=== PATIENT | female | born 2005 | race Caucasian/White ===

== ENCOUNTER 2023-01-22 22:15 | Emergency (ER) | payer MEDICAID ==
[~2023-01-22] VITALS: Ht 170.2 cm; Wt 63.6 kg
[2023-01-22 22:43] VITALS: BP 123/82; PULSE 96; RESP 17; TEMP 99; O2SAT 99
== END 2023-01-23 04:56 | disposition left against medical advice (07) ==
LOC: ER 22:16
DX: R21 Rash and other nonspecific skin eruption (principal); Z53.21 Procedure and treatment not carried out due to patient leaving prior to being seen by health care provider
CPT/HCPCS: 99281